=== PATIENT | male | born 1975 | race African-American/Black ===

== ENCOUNTER 2019-11-15 15:26 | Emergency (ER) | payer BC, OTHER ==
[2019-11-15] MEDS ORDERED: Adacel (T-DAP) 0.5 ML SYRINGE ONE (15:41)
[2019-11-15] MEDS ORDERED: Lidocaine 1% w/Epinephrine 1:100K 20 ML VIAL ONE (15:44)
[2019-11-15] MEDS ORDERED: Bacitracin 1 PK ONE (16:38)
== END 2019-11-15 16:48 | disposition home or self-care (01) ==
LOC: BURERS 15:26
DX: S51.811A Laceration without foreign body of right forearm, initial encounter (principal); S61.211A Laceration without foreign body of left index finger without damage to nail, initial encounter; S61.213A Laceration without foreign body of left middle finger without damage to nail, initial encounter; F17.210 Nicotine dependence, cigarettes, uncomplicated; Z23 Encounter for immunization; W25.XXXA Contact with sharp glass, initial encounter
CPT/HCPCS: 12002; 90471; 90715

== ENCOUNTER 2019-11-25 21:26 | Emergency (ER) | payer BC | END 2019-11-25 21:42 | disposition home or self-care (01) | LOC: BURERS 21:26 | DX: S51.811D Laceration without foreign body of right forearm, subsequent encounter (principal); F17.210 Nicotine dependence, cigarettes, uncomplicated ==